=== PATIENT | female | born 1985 | race African-American/Black ===

== ENCOUNTER 2024-10-26 13:54 | Inpatient (IN) | payer OTHER ==
[2024-10-26 14:58] VITALS: BMI 22.4
[2024-10-26] MEDS ORDERED: MAGNESIUM HYDROX 2400MG/30ML ORAL SUSPENSION 30 ML CUP PO PRN (17:47)
[2024-10-26] MEDS ORDERED: guaiFENesin 600 MG TABLET.ER (FP) PO PRN (17:47)
[2024-10-26] MEDS ORDERED: BENZONATATE 200 MG CAPSULE PO PRN (17:47)
[2024-10-26] MEDS ORDERED: hydrOXYzine PAMOATE 25 MG CAPSULE (FP) PO PRN (17:47)
[2024-10-26] MEDS ORDERED: NALOXONE (NARCAN) HCL 4 MG/0.1 ML SPRAY NS PRN (17:47)
[2024-10-26] MEDS ORDERED: LOPERAMIDE HCL 2 MG CAPSULE PO PRN (17:47)
[2024-10-26] MEDS ORDERED: ACETAMINOPHEN 325 MG TABLET (FP) PO PRN (17:47)
[2024-10-26] MEDS ORDERED: POLYETHYLENE GLYCOL (HEALTHYLAX) 3350 17 GM PACKET PO PRN (17:47)
[2024-10-26] MEDS: IBUPROFEN 600 MG TABLET (FP) PO PRN (19:49)
[2024-10-26] MEDS: NICOTINE POLACRILEX 2 MG GUM BUC PRN (19:49)
[2024-10-26] MEDS: THIAMINE 100 MG TABLET PO SCH (21:07)
[2024-10-26] MEDS: MELATONIN 5 MG TABLETS PO SCH (21:07)
[2024-10-27] MEDS: PRENATAL VITAMINS W/ FOLIC ACID TABLET (FP) PO SCH (10:18)
[2024-10-27] MEDS: NICOTINE 14 MG/24 HOURS TOPICAL PATCH TD SCH (10:20)
[2024-10-27 10:33] LABS: PH,URINE 5.5 (5.0-8.0); URINE APPEARANCE CLEAR; URINE BILIRUBIN NEGATIVE (NEGATIVE); URINE COLOR YELLOW; URINE GLUCOSE (UA) NEGATIVE (NEGATIVE); URINE KETONE NEGATIVE (NEGATIVE); URINE LEUK ESTERASE NEGATIVE (NEGATIVE); URINE NITRITE NEGATIVE (NEGATIVE); URINE PROTEIN NEGATIVE (NEGATIVE); URINE UROBILINOGEN 0.2 mg/dL (0.2-1.0)
[2024-10-27 10:33] LABS: HEMATOCRIT 32.7 % (32.4-45.2); HEMOGLOBIN 10.4 GM/dL (10.7-15.3); MCH 27.5 pg (25.7-33.7); MCHC 31.9 g/dl (32.0-36.0); MEAN CELL VOLUME 86.2 fl (80-96); MEAN PLT VOLUME 9.4 fl (7.5-11.1); PLATELET COUNT 254 10^3/uL (134-434); RDW 15.3 % (11.6-15.6); WHITE BLOOD COUNT 7.8 K/mm3 (4.0-10.0)
[2024-10-27 10:38] LABS: POTASSIUM 4.3 mmol/L (3.5-5.1)
[2024-10-27 10:45] LABS: BLOOD UREA NITROGEN 10.8 mg/dL (7-18)
[2024-10-27 10:47] LABS: BILIRUBIN,TOTAL 0.4 mg/dL (0.2-1); TOT PROT 6.3 g/dl (6.4-8.2)
[2024-10-27 10:48] LABS: CREATININE 0.8 mg/dL (0.55-1.3)
[2024-10-27 11:02] LABS: SYPHILIS W/ RPR CONF NON-REACTIVE (NONREACTIVE)
[2024-10-27] MEDS: BENZOCAINE 20 % GEL TUBE MM PRN (16:42)
[2024-10-28] MEDS ORDERED: TUBERCULIN PPD 5 TU/0.1ML VIAL ID ONE (12:09)
[2024-10-28] MEDS: TUBERCULIN PPD 5 TU/0.1ML VIAL ID ONE (12:11)
[2024-10-28] MEDS ORDERED: OXYMETAZOLINE 0.05% NASAL SOLUTION 15 ML BOTTLE NS PRN (12:13)
[2024-10-28] MEDS ORDERED: P-EPHED 60MG/TRIPROLIDI 2.5MG TABLET PO PRN (12:14)
[2024-10-28] MEDS ORDERED: AMOX TR/POT CLAV 500MG/125MG TABLETS (FP) PO SCH (17:30)
[2024-10-28] MEDS ORDERED: CHLORHEXIDINE GLUCONATE 0.12% 15ML CUP MM SCH (22:00)
[2024-10-29] MEDS: NALTREXONE HCL 50 MG TABLET PO ONE (12:46)
[2024-10-30] MEDS: IBUPROFEN 400 MG TABLET (FP) PO PRN (06:20)
[2024-10-30] MEDS: NALTREXONE HCL 50 MG TABLET PO SCH (09:51)
[2024-11-01] MEDS: NICOTINE POLACRILEX 2 MG GUM BUC PRN (11:09)
[2024-11-01] MEDS: MAG HYDROX/AL HYDROX/SIMETH 30 ML UNIT-DOSE CUP PO PRN (18:16)
[2024-11-03] MEDS: BENZOCAINE/MENTHOL (CHLORASEPTIC ) LOZENGE MM PRN (10:15)
[2024-11-03] MEDS ORDERED: BENZONATATE 200 MG CAPSULE PO PRN (12:28)
[2024-11-03] MEDS ORDERED: guaiFENesin 600 MG TABLET.ER (FP) PO PRN (12:28)
[2024-11-03] MEDS: BACLOFEN 10 MG TABLET (FP) PO SCH (21:42)
[2024-11-06] MEDS: OXYMETAZOLINE 0.05% NASAL SOLUTION 15 ML BOTTLE NS PRN (21:26)
[2024-11-16 07:05] VITALS: BP 109/60; PULSE 57; RESP 16; TEMP 98.3
[2024-11-16] MEDS: NALOXONE (NYS OPIOID OVERDOSE PROGRAM) 4 MG/0.1 ML SPRAY NS SCH (10:11)
== END 2024-11-16 10:14 | disposition home or self-care (01) | DRG 772 ==
LOC: YASAS 13:54 → Y5N 18:19
PROVIDERS: ADMIT Psychiatry & Neurology Pain Medicine; ATTEND Family Medicine Addiction Medicine
PROC: HZ42ZZZ Group Counseling for Substance Abuse Treatment, Cognitive-Behavioral (ICD-10-PCS; principal; 2024-10-26)
DX: F10.20 Alcohol dependence, uncomplicated (principal); F14.20 Cocaine dependence, uncomplicated; F12.20 Cannabis dependence, uncomplicated; F17.210 Nicotine dependence, cigarettes, uncomplicated; F20.9 Schizophrenia, unspecified; F29 Unspecified psychosis not due to a substance or known physiological condition; U07.1 COVID-19; J45.20 Mild intermittent asthma, uncomplicated; K02.9 Dental caries, unspecified; Z59.02 Unsheltered homelessness
CPT/HCPCS: 0241U-QW; 36415; 80053; 80305; 80307; 81003; 81025; 85027; 86780; 86803; 87811; 93005; 93010; J0475